=== PATIENT | male | born 1985 | race Two or more races ===

== ENCOUNTER 2017-07-06 00:18 | Emergency (ER) | payer OTHER ==
--- NOTE | 2017-07-06 01:15 | ER Document Report ---
ED Psych Disorder / Suicide - General Mode of Arrival: Ambulatory Information source: Patient TRAVEL OUTSIDE OF THE [place] IN LAST 30 DAYS: No <MONA WOLF - Last Filed: 07/06/17 03:55> <YENNIFER KUMAR - Last Filed: 07/06/17 05:15> - General Chief Complaint: Psych Problem Stated Complaint: SUICIDIAL IDEATION Time Seen by Provider: 07/06/17 01:14 Notes: 32 yo male drove self here because of "suicide ideation-I'm not opposed to taking more risks-I don't care what happens to me- for the last week- no suicide plan", going through a divorce, recent increased stress- over thinks everything. Nothing happened tonight. Never tried to commit suicide-[employer]- stationed formerly [employer]. Currently in therapy for anxiety, sleep disorder, panic attacks, hypervigilance- since 2013. no recent medication change. meds: bupropion xl 150mg, vyvanse 60mg qd then 20mg at 1300, deseryl 150mg daily, prozac 80mg daily. He is here tonight because he is afraid it is going to escalate. (MONA WOLF) Past Medical History - Social History Patient has suicidal ideation: No Patient has homicidal ideation: No Renal/ Medical History: Denies: Hx Peritoneal Dialysis <MONA WOLF - Last Filed: 07/06/17 03:55> - General Information source: Patient - Social History Smoking Status: Unknown if Ever Smoked Family History: Reviewed & Not Pertinent <YENNIFER KUMAR E - Last Filed: 07/06/17 05:15> Physical Exam - Vital signs Interpretation: Normal - General General appearance: Appears well, Alert In distress: None - HEENT Head: Normocephalic, Atraumatic Eyes: Normal Conjunctiva: Normal Pupils: PERRL Neck: Supple. No: Lymphadenopathy, Thyromegally - Respiratory Respiratory status: No respiratory distress Chest status: Nontender Breath sounds: Normal Chest palpation: Normal - Cardiovascular Rhythm: Regular Heart sounds: Normal auscultation Murmur: No - Abdominal Inspection: Normal Distension: No distension Bowel sounds: Normal Tenderness: Nontender Organomegaly: No organomegaly - Back Back: Normal, Nontender - Extremities General upper extremity: Normal inspection, Nontender, Normal color, Normal ROM , Normal temperature General lower extremity: Normal inspection, Nontender, Normal color, Normal ROM , Normal temperature, Normal weight bearing. No: Ghanshyam's sign - Neurological Neuro grossly intact: Yes Cognition: Normal Orientation: AAOx4 [place] Coma Scale Eye Opening: Spontaneous [place] Coma Scale Verbal: Oriented [place] Coma Scale Motor: Obeys Commands [place] Coma Scale Total: 15 Speech: Normal Motor strength normal: LUE, RUE, LLE, RLE Sensory: Normal - Psychological Associated symptoms: Flight of ideas, Restlessness - Skin Skin Temperature: Warm Skin Moisture: Dry Skin Color: Normal <MONA WOLF - Last Filed: 07/06/17 03:55> - Vital signs Vitals: Temp Pulse Resp BP Pulse Ox 97.6 F 88 18 120/75 97 07/06/17 00:45 07/06/17 00:45 07/06/17 00:45 07/06/17 00:45 07/06/17 00:45 Course - Laboratory Result Diagrams: 07/06/17 01:03 07/06/17 01:03 <MONA WOLF - Last Filed: 07/06/17 03:55> - Laboratory Result Diagrams: 07/06/17 01:03 07/06/17 01:03 <YENNIFER KUMAR - Last Filed: 07/06/17 05:15> - Re-evaluation Re-evalutation: 07/06/17 01:[address] kumar, we are supposed to be able to transfer him to [facility], called the desk there and they will page the oncall psych doctor. 07/06/17 01:53 dr. senior will accept the transfer for admission to [facility]. I explained this to the pt 07/06/17 01:56 [facility] transfer center will call with room number. 07/06/17 03:21 Patient has room assignment and we are trying to arrange S transfer 07/06/17 03:53 [facility] is coming to take the pt to [facility]. Dr. kumar will check pt prior to transfer, pt asleep 07/06/17 03:55 (MONA WOLF) 07/06/17 04:11 Transport in ED. Pt reassessed and stable for transport. (YENNIFER KUMAR) - Vital Signs Vital signs: Temp Pulse Resp BP Pulse Ox 97.6 F 73 18 101/56 L 98 07/06/17 03:45 07/06/17 03:45 07/06/17 03:45 07/06/17 03:45 07/06/17 03:45 - Laboratory Laboratory results interpreted by me: 07/06/17 01:03 Glucose 111 H Acetaminophen < 10 L Discharge <MONA WOLF - Last Filed: 07/06/17 03:55> <YENNIFER KUMAR - Last Filed: 07/06/17 05:15> - Discharge Clinical Impression: Suicide ideation Condition: Good Disposition: [facility]
[2017-07-06 01:30] LABS: ABSOLUTE BASOPHILS # (AUTO) 0.1 10^3/uL (0.0-0.2); ABSOLUTE EOSINOPHILS # (AUTO) 0.2 10^3/uL (0.0-0.6); ABSOLUTE LYMPHOCYTES (AUTO) 2.1 10^3/uL (0.5-4.7); ABSOLUTE MONOCYTES (AUTO) 0.8 10^3/uL (0.1-1.4); ABSOLUTE NEUT (AUTO) 4.7 10^3/uL (1.7-8.2); BASOPHILS % (AUTO) 0.7 % (0-2); EOSINOPHILS % (AUTO) 2.2 % (0-6); HEMATOCRIT 40.7 % (37.9-51.0); HEMOGLOBIN 14.3 g/dL (13.5-17.0); HGB HCT DIFFERENCE 2.2; LYMPHOCYTES % (AUTO) 27.6 % (13-45); MEAN CORPUSCULAR HEMOGLOBIN 30.5 pg (27.0-33.4); MEAN CORPUSCULAR HGB CONC 35.2 g/dL (32.0-36.0); MEAN CORPUSCULAR VOLUME 87 fl (80-97); MONOCYTES % (AUTO) 9.8 % (3-13); RED CELL DISTRIBUTION WIDTH 13.1 % (11.5-14.0); SEGMENTED NEUTROPHILS % (AUTO) 59.7 % (42-78); WHITE BLOOD COUNT 7.8 10^3/uL (4.0-10.5)
[2017-07-06 01:37] LABS: APPEARANCE,URINE CLEAR; BILIRUBIN,URINE NEGATIVE (NEGATIVE); GLUCOSE, URINE NEGATIVE (NEGATIVE); KETONES,URINE NEGATIVE (NEGATIVE); LEUKOCYTE ESTERASE,URINE NEGATIVE (NEGATIVE); NITRITE,URINE NEGATIVE (NEGATIVE); PROTEIN,URINE NEGATIVE (NEGATIVE); URINE SPECIFIC GRAVITY 1.012; UROBILINOGEN,URINE NEGATIVE mg/dL (<2.0)
[2017-07-06 01:44] LABS: ALANINE AMINOTRANSFERASE 54 U/L (21-72); ALBUMIN 4.4 g/dL (3.5-5.0); ALKALINE PHOSPHATASE 53 U/L (38-126); ANION GAP 12 (5-19); ASPARTATE AMINO TRANSFERASE 27 U/L (17-59); BILIRUBIN,DIRECT 0.3 mg/dL (0.0-0.4); BILIRUBIN,TOTAL 0.4 mg/dL (0.2-1.3); BLOOD UREA NITROGEN 16 mg/dL (7-20); CALCIUM 9.9 mg/dL (8.4-10.2); CARBON DIOXIDE 26 mmol/L (22-30); CHLORIDE 100 mmol/L (98-107); GLUCOSE 111 mg/dL (75-110); POTASSIUM 4.2 mmol/L (3.6-5.0); SODIUM 138.2 mmol/L (137-145); TOTAL PROTEIN 7.5 g/dL (6.3-8.2)
[2017-07-06 01:47] LABS: ALCOHOL < 10 mg/dL (NONE DETECTED)
[2017-07-06 02:23] LABS: URINE BARBITURATES SCREEN NEGATIVE; URINE METHADONE SCREEN NEGATIVE; URINE OPIATES LOW NEGATIVE; URINE PHENCYCLIDINE SCREEN NEGATIVE
[2017-07-06 03:23] VITALS: BP 101/56
--- NOTE | 2017-07-06 09:01 | EKG REPORT ---
SEVERITY:- NORMAL ECG - SINUS RHYTHM : Confirmed by: Renae Coleman MD 06-Jul-2017 08:59:58
== END 2017-07-06 04:14 ==
LOC: ER 00:18
DX: R45.851 Suicidal ideations (principal); F41.9 Anxiety disorder, unspecified; G47.9 Sleep disorder, unspecified; F41.0 Panic disorder [episodic paroxysmal anxiety]; Z63.5 Disruption of family by separation and divorce; Z79.899 Other long term (current) drug therapy
CPT/HCPCS: 36415; 80053; 80307; 81001; 85025; 93005; 93010; 99284